=== PATIENT | male | born 1950 | race Hispanic/Latino ===

== ENCOUNTER 2017-12-07 20:34 | Observation (INO) | payer BC, MEDICARE ==
[~2017-12-07] VITALS: Ht 167.6 cm; Wt 114.8 kg
[2017-12-07] MEDS ORDERED: NITROGLYCERIN 1GM/1 INCH PACKET TD ONE (21:00)
[2017-12-07 21:30] VITALS: BP 147/67
[2017-12-07] MEDS: NITROGLYCERIN 1GM/1 INCH PACKET TD SCH (23:00)
[2017-12-07 23:38] VITALS: BP 135/70
[2017-12-07] MEDS ORDERED: POTASSIUM CHLORIDE 20 MEQ ERTAB PO PRN (23:45)
[2017-12-07] MEDS ORDERED: HYDRALAZINE HCL 20 MG/ML VIAL IV PRN (23:45)
[2017-12-07] MEDS ORDERED: POTASSIUM CHLORIDE 20MEQ/100ML 100 ML IV PRN (23:45)
[2017-12-07] MEDS ORDERED: NITROGLYCERIN 0.4 MG SL TAB SL PRN (23:45)
[2017-12-07] MEDS ORDERED: LIDOCAINE HCL-MPF 1% 2ML VIAL IVP PRN (23:45)
[2017-12-07] MEDS ORDERED: POTASSIUM CHLORIDE 10% ELIXIR 20 MEQ/15 ML UDCUP PO PRN (23:45)
[2017-12-07] MEDS ORDERED: ONDANSETRON HCL 4 MG/2 ML VIAL IV PRN (23:45)
[2017-12-08 01:22] LABS: HEMOGLOBIN A1C 6.2 % (4.0-6.0)
[2017-12-08 01:35] LABS: CHOLESTEROL 125 mg/dL (<200); CREATINE KINASE MB < 0.5 ng/mL (0.5-3.6); CREATINE KINASE, TOTAL 85 U/L (21-232); HDL CHOLESTEROL 46 mg/dL (29-71); LDL DIRECT 71 mg/dL (0-99); MYOGLOBIN 53 ng/mL (10-92); THYROID STIMULATING HORMONE 1.84 uIU/mL (0.36-3.74); TRIGLYCERIDES 152 mg/dL (30-200); TROPONIN I < 0.04 ng/mL (0.00-0.06)
[2017-12-08 03:35] VITALS: BP 125/64
[2017-12-08] MEDS: NITROGLYCERIN 1GM/1 INCH PACKET TD SCH ×4 (07:45→23:15)
[2017-12-08 08:06] VITALS: BP 136/65
[2017-12-08] MEDS: FAMOTIDINE/PF 20 MG/2 ML VIAL IV SCH ×3 (09:00→20:34)
[2017-12-08 09:46] LABS: CREATINE KINASE MB < 0.5 ng/mL (0.5-3.6); CREATINE KINASE, TOTAL 86 U/L (21-232); MYOGLOBIN 46 ng/mL (10-92); TROPONIN I < 0.04 ng/mL (0.00-0.06)
[2017-12-08 11:20] VITALS: BP 158/79
[2017-12-08] MEDS ORDERED: REGADENOSON 0.4 MG/5 ML PF SYG IVP SCH (14:00)
[2017-12-08 17:00] VITALS: BP 133/67
[2017-12-08] MEDS: ASPIRIN 325 MG TABLET PO SCH (17:54)
[2017-12-08] MEDS: METOPROLOL TARTRATE 25 MG TAB PO SCH ×2 (17:55→20:34)
[2017-12-08] MEDS: ENOXAPARIN SODIUM 40 MG/0.4 ML SYRINGE SQ SCH (17:59)
[2017-12-08 19:00] VITALS: BP 108/70
[2017-12-08] MEDS: RANOLAZINE 500 MG TAB.SR.12H PO SCH (20:34)
[2017-12-08] MEDS ORDERED: ISOSORBIDE MONONITRATE 20 MG TABLET PO SCH (21:00)
[2017-12-08 23:00] VITALS: BP 106/57
[2017-12-09 03:00] VITALS: BP 122/69
[2017-12-09 08:00] VITALS: BP 130/74
[2017-12-09] MEDS: ASPIRIN 325 MG TABLET PO SCH (09:40)
[2017-12-09] MEDS: METOPROLOL TARTRATE 25 MG TAB PO SCH (09:40)
[2017-12-09] MEDS: FAMOTIDINE/PF 20 MG/2 ML VIAL IV SCH (09:41)
[2017-12-09] MEDS: RANOLAZINE 500 MG TAB.SR.12H PO SCH (09:46)
[2017-12-09] MEDS: NITROGLYCERIN 1GM/1 INCH PACKET TD SCH (09:46)
[2017-12-09] MEDS: ENOXAPARIN SODIUM 40 MG/0.4 ML SYRINGE SQ SCH (09:55)
[2017-12-09 12:00] VITALS: BP 130/59
[2017-12-09] MEDS ORDERED: METO25 PO (14:53)
[2017-12-09] MEDS ORDERED: ISOS20TA7 PO (14:54)
[2017-12-09] MEDS ORDERED: PANT40TA25 PO (14:54)
== END 2017-12-09 15:40 | disposition home or self-care (01) ==
LOC: EDH 20:34 → EDHIP 20:45 → 3BH 21:23
PROVIDERS: ADMIT Family Medicine; ATTEND Family Medicine
DX: I25.110 Atherosclerotic heart disease of native coronary artery with unstable angina pectoris (principal); R10.13 Epigastric pain; E66.01 Morbid (severe) obesity due to excess calories; I10 Essential (primary) hypertension; E78.5 Hyperlipidemia, unspecified; Z68.41 Body mass index [BMI] 40.0-44.9, adult; Z95.1 Presence of aortocoronary bypass graft; Z82.49 Family history of ischemic heart disease and other diseases of the circulatory system; Z79.899 Other long term (current) drug therapy
CPT/HCPCS: 36415; 71250; 78452; 80061; 82550 ×2; 82553 ×2; 83036; 83874 ×2; 84443; 84484 ×2; 93005; 93017; 96372 ×2; 96374; 96376; 99285; A4510; A9500 ×2; G0378 ×43; J1650 ×2; J2785; J3490 ×3

== ENCOUNTER → 2022-08-17 | Outpatient (CLI) | payer MEDICARE, OTHER ==
[~2022-08-17] MED LIST: ISOS20TA85 PO; METO25 PO; PANT40TA55 PO
== END | disposition home or self-care (01) ==
LOC: RAH 15:11
PROVIDERS: ATTEND Family Medicine
DX: M25.762 Osteophyte, left knee (principal); M25.462 Effusion, left knee; M25.562 Pain in left knee
CPT/HCPCS: 73562